=== PATIENT | male | born 1975 | race Two or more races ===

== ENCOUNTER 2019-10-23 17:29 | Inpatient (IN) | payer OTHER ==
[~2019-10-23] VITALS: Ht 160 cm; Wt 64.9 kg
[~2019-10-23 17:29] MED LIST: CEFEPIME 1,000 MG in DEXTROSE 5% WATER 50 ML IV SCH
[2019-10-23] MEDS ORDERED: SODIUM CHLORIDE 0.9% 1000ML BAG (SEPSIS BOLUS) IV ONE (18:30)
[2019-10-23 18:56] LABS: MEAN CORPUSCULAR HEMOGLOBIN 28.2 pg (28.0-32.0); MEAN CORPUSCULAR VOLUME 90.1 fL (80.0-94.0); MEAN PLATELET VOLUME 10.5 fl (7.4-10.4); PLATELET 106 x1000/uL (130-400); RED BLOOD CELL COUNT 2.12 mill/uL (4.7-6.1); RED CELL DISTRIBUTION WIDTH 16.5 % (11.6-14.6)
[2019-10-23 19:02] LABS: CHLORIDE 101 mEq/L (98-107); INR 1.3; PROTHROMBIN TIME 13.5 sec (9.6-11.0)
[2019-10-23 19:08] LABS: HEMATOCRIT. 19.1 % (42.0-52.0)
[2019-10-23 19:13] LABS: CLARITY URINE CLEAR (CLEAR); COLOR URINE YELLOW (YELLOW); KETONES URINE NEGATIVE (NEGATIVE); LEUKOCYTE ESTERASE URINE NEGATIVE (NEGATIVE); NITRITE URINE NEGATIVE (NEGATIVE); OCCULT BLOOD URINE NEGATIVE (NEGATIVE); PROTEIN URINE 3+ (NEGATIVE); SPECIFIC GRAVITY URINE 1.012 (1.005-1.030); UROBILINOGEN URINE 0.2 E.U./dL (0.2-1.0)
[2019-10-23] MEDS ORDERED: INSULIN REGULAR (DRIP) 100 UNITS in SODIUM CHLORIDE 0.9% 100 ML IV NR (19:22)
[2019-10-23] MEDS ORDERED: SODIUM CHLORIDE 0.9% 1,000 ML IV ONE (19:30)
[2019-10-23] MEDS ORDERED: CALCIUM CHLORIDE 1GM/10ML SYR IV ONE (19:30)
[2019-10-23] MEDS ORDERED: INSULIN REGULAR (HUMULIN R) 300UNITS/3ML IV ONE (19:30)
[2019-10-23] MEDS ORDERED: SODIUM BICARBONATE 8.4% 1 MEQ/ML 50ML SYR IV ONE (19:30)
[2019-10-23] MEDS ORDERED: ONDANSETRON HCL 4MG/2ML INJ IV ONE (20:45)
[2019-10-23 20:56] LABS: PLATELET ESTIMATE DECREASED
[2019-10-23 21:14] LABS: HEPATITIS B SURFACE ANTIGEN NEGATIVE
[2019-10-23 21:41] LABS: PHOSPHORUS 12.4 mg/dL (2.5-4.9)
[2019-10-23 21:44] LABS: HEPATITIS A AB IGM NEGATIVE (NEGATIVE)
[2019-10-23] MEDS ORDERED: GABAPENTIN 300MG CAPSULE PO ONE (22:45)
[2019-10-24] VITALS (29 sets, daily range): BP systolic 122–189; BP diastolic 70–135
[2019-10-24 00:25] LABS: PHOSPHORUS 12.3 mg/dL (2.5-4.9)
[2019-10-24] MEDS ORDERED: INSULIN REGULAR (DRIP) 100 UNITS in SODIUM CHLORIDE 0.9% 99 ML IV PRN ×2 (05:00→05:30)
[2019-10-24] MEDS ORDERED: SODIUM CHLORIDE 0.9% 1,000 ML IV SCH (05:15)
[2019-10-24] MEDS ORDERED: DEXT 5%/0.9% NACL 1,000 ML IV SCH (05:30)
[2019-10-24] MEDS ORDERED: DEXTROSE 50% WATER 50ML SYRINGE IV PRN ×2 (05:30)
[2019-10-24] MEDS: CEFEPIME 1,000 MG in DEXTROSE 5% WATER 50 ML IV SCH (05:53)
[2019-10-24] MEDS: BLOOD SUGAR DIAGNOSTIC STRIP TEST SCH ×18 (05:54→23:00)
[2019-10-24] MEDS: CLONIDINE 0.1MG TABLET PO PRN ×2 (05:58→14:32)
[2019-10-24] MEDS ORDERED: INSULIN REGULAR (DRIP) 100 UNITS in SODIUM CHLORIDE 0.9% 100 ML IV SCH (06:00)
[2019-10-24 06:02] LABS: BASOPHILS % 0.5 % (0.0-2.0); EOSINOPHILS % 0.6 % (0.0-5.0); LYMPHOCYTES % 24.8 % (20.0-50.0); MEAN CORPUSCULAR HEMOGLOBIN 28.8 pg (28.0-32.0); MEAN CORPUSCULAR VOLUME 88.1 fL (80.0-94.0); MEAN PLATELET VOLUME 10.2 fl (7.4-10.4); MONOCYTES % 13.8 % (2.0-8.0); NEUTROPHILS % 60.3 % (40.0-76.0); PLATELET 82 x1000/uL (130-400); RED BLOOD CELL COUNT 2.12 mill/uL (4.7-6.1); RED CELL DISTRIBUTION WIDTH 15.7 % (11.6-14.6)
[2019-10-24 06:10] LABS: HEMATOCRIT. 18.7 % (42.0-52.0); HEMOGLOBIN. 6.1 g/dL (14.0-18.0)
[2019-10-24] MEDS ORDERED: VANCOMYCIN 1 G PREMIX 200 ML IV SCH (06:30)
[2019-10-24 06:31] LABS: PHOSPHORUS 11.5 mg/dL (2.5-4.9)
[2019-10-24] MEDS ORDERED: DEXT 5%/0.45% NACL 500ML 500 ML IV SCH (08:00)
[2019-10-24] MEDS: DEXT 5%/0.45% NACL 1000ML 1,000 ML IV SCH ×2 (08:11→18:47)
[2019-10-24] MEDS: PANTOPRAZOLE SODIUM 40 MG/VIAL IV SCH ×2 (08:22→16:00)
[2019-10-24] MEDS: ONDANSETRON HCL 4MG/2ML INJ IV PRN (09:21)
[2019-10-24] MEDS ORDERED: SODIUM BICARBONATE 4% (2.4MEQ) 5ML VIAL IV ONE (10:18)
[2019-10-24] MEDS ORDERED: HEPARIN 1000 UNITS/ML 10ML ONE (10:18)
[2019-10-24] MEDS ORDERED: LIDOCAINE HCL 1% 20ML VIAL (Pyxis) INJ ONE (10:19)
[2019-10-24] MEDS ORDERED: INSULIN REGULAR (HUMULIN R) 300UNITS/3ML IV NR (10:39)
[2019-10-24] MEDS ORDERED: NIFEDIPINE XL 60MG TAB PO SCH (10:45)
[2019-10-24] MEDS ORDERED: SODIUM BICARBONATE 8.4% 1 MEQ/ML 50ML SYR IV NR ×2 (10:45→17:30)
[2019-10-24] MEDS ORDERED: DEXTROSE 50% WATER 50ML SYRINGE IV NR (10:45)
[2019-10-24] MEDS ORDERED: CELL2 PO (11:42)
[2019-10-24] MEDS ORDERED: PROG1 PO (11:42)
[2019-10-24] MEDS ORDERED: CALCIUM GLUCONATE 1,000 MG in DEXT 5% WATER 90 ML IV NR (12:00)
[2019-10-24] MEDS ORDERED: MYCOPHENOLATE MOFETIL 250MG CAPSULE PO SCH (13:00)
[2019-10-24] MEDS ORDERED: PRED5TAB PO (13:19)
[2019-10-24] MEDS ORDERED: FURO-152 PO (13:19)
[2019-10-24] MEDS ORDERED: CARV25TA47 PO (13:19)
[2019-10-24] MEDS ORDERED: CALCIUM ACETATE 667 MG TABLET PO SCH (13:20)
[2019-10-24] MEDS ORDERED: HYDR-4135 PO (13:21)
[2019-10-24] MEDS ORDERED: FERR325T6 PO (13:21)
[2019-10-24] MEDS ORDERED: LOSA25TA26 PO (13:21)
[2019-10-24] MEDS ORDERED: FUROSEMIDE 40MG/4ML VIAL IVP SCH (14:45)
[2019-10-24] MEDS: HYDRALAZINE HCL 50MG TABLET PO SCH ×2 (15:54→21:41)
[2019-10-24 16:14] LABS: BG BASE EXCESS -6.6 mmol/L (-2.0-2.0); BG CARBOXYHEMOGLOBIN 0.3 % (0.5-1.5); BG DEOXYHEMOGLOBIN 2.1 % (0.0-5.0); BG FRACTION INSPIRED OXYGEN 28; BG HCO3 ACT 15.5 mmol/L (22.0-26.0); BG METHEMOGLOBIN 0.2 % (0.0-1.5); BG OXYGEN SATURATION 97.9 % (92.0-98.5); BG OXYHEMOGLOBIN 97.4 % (94.0-97.0); BG PH 7.485 (7.350-7.450); BG PO2 125.4 mmHg (75.0-100.0); BG SAMPLE SITE RIGHT RADIAL; BG VENT MODE NASAL CANNULA
[2019-10-24] MEDS ORDERED: CALCIUM GLUCONATE 100MG/ML 10ML VIAL IV NR (16:30)
[2019-10-24] MEDS: METRONIDAZOLE 500 MG PREMIX 100 ML IV SCH (16:49)
[2019-10-24] MEDS ORDERED: TACROLIMUS 1MG CAPSULE PO SCH (17:00)
[2019-10-24] MEDS: MYCOPHENOLATE MOFETIL 250MG CAPSULE PO SCH (17:54)
[2019-10-24] MEDS: TACROLIMUS 1MG CAPSULE PO SCH (17:54)
[2019-10-24] MEDS ORDERED: VANCOMYCIN 750 MG PREMIX 150 ML IV SCH (18:00)
[2019-10-24] MEDS ORDERED: POTASSIUM CHLORIDE 20MEQ TABLET SR PO NR (19:12)
[2019-10-24 20:28] LABS: HEMATOCRIT 25.1 % (42.0-52.0); HEMOGLOBIN 8.6 g/dL (14.0-18.0); MEAN CORPUSCULAR HEMOGLOBIN 28.8 pg (28.0-32.0); MEAN CORPUSCULAR VOLUME 83.7 fL (80.0-94.0); PLATELET 79 x1000/uL (130-400); RED BLOOD CELL COUNT 2.99 mill/uL (4.7-6.1); RED CELL DISTRIBUTION WIDTH 15.7 % (11.6-14.6)
[2019-10-24] MEDS ORDERED: EPOETIN ALFA 4000UNITS/ML VIAL SUBCUT NR (21:00)
[2019-10-24] MEDS ORDERED: GABAPENTIN 100MG CAPSULE PO PRN (22:45)
[2019-10-25] VITALS (51 sets, daily range): BP systolic 106–197; BP diastolic 63–124
[2019-10-25] MEDS: METRONIDAZOLE 500 MG PREMIX 100 ML IV SCH ×3 (01:53→21:07)
[2019-10-25] MEDS: BLOOD SUGAR DIAGNOSTIC STRIP TEST SCH ×12 (01:54→20:28)
[2019-10-25] MEDS: DEXT 5%/0.45% NACL 1000ML 1,000 ML IV SCH ×3 (05:10→23:47)
[2019-10-25] MEDS: CEFEPIME 1,000 MG in DEXTROSE 5% WATER 50 ML IV SCH (05:16)
[2019-10-25 06:49] LABS: HEMOGLOBIN. 8.5 g/dL (14.0-18.0); MEAN CORPUSCULAR HEMOGLOBIN 28.6 pg (28.0-32.0); MEAN CORPUSCULAR VOLUME 83.9 fL (80.0-94.0); MEAN PLATELET VOLUME 9.5 fl (7.4-10.4); PLATELET 75 x1000/uL (130-400); RED BLOOD CELL COUNT 2.97 mill/uL (4.7-6.1); RED CELL DISTRIBUTION WIDTH 15.7 % (11.6-14.6)
[2019-10-25 07:57] LABS: BG BASE EXCESS -8.9 mmol/L (-2.0-2.0); BG CARBOXYHEMOGLOBIN 0.3 % (0.5-1.5); BG DEOXYHEMOGLOBIN 4.9 % (0.0-5.0); BG FRACTION INSPIRED OXYGEN 21; BG METHEMOGLOBIN 0.3 % (0.0-1.5); BG OXYGEN SATURATION 95.1 % (92.0-98.5); BG OXYHEMOGLOBIN 94.5 % (94.0-97.0); BG PCO2 25.8 mmHg (35.0-45.0); BG PH 7.382 (7.350-7.450); BG PO2 81.5 mmHg (75.0-100.0); BG SAMPLE SITE RIGHT RADIAL; BG TOTAL HEMOGLOBIN 9.4 g/dL (12.0-18.0); BG VENT MODE ROOM AIR
[2019-10-25] MEDS ORDERED: LOSARTAN POTASSIUM 25 MG TABLET PO SCH (09:00)
[2019-10-25] MEDS ORDERED: PREDNISONE 5MG TABLET PO SCH (09:00)
[2019-10-25] MEDS ORDERED: DEXTROSE 50% WATER 50ML SYRINGE IV PRN (09:00)
[2019-10-25] MEDS: METHYLPREDNISOLONE SOD SUCC 40 MG/ML VIAL IV SCH (10:01)
[2019-10-25] MEDS: FUROSEMIDE 40MG/4ML VIAL IVP SCH (10:01)
[2019-10-25] MEDS: PANTOPRAZOLE SODIUM 40 MG/VIAL IV SCH ×2 (10:01→17:19)
[2019-10-25] MEDS: TACROLIMUS 1MG CAPSULE PO SCH ×2 (10:02→17:19)
[2019-10-25] MEDS: MYCOPHENOLATE MOFETIL 250MG CAPSULE PO SCH ×3 (10:02→17:19)
[2019-10-25] MEDS: HYDRALAZINE HCL 50MG TABLET PO SCH ×3 (10:02→17:19)
[2019-10-25 12:44] LABS: TOTAL IRON BINDING CAPACITY 159 ug/dL (250-450)
[2019-10-25] MEDS: INSULIN LISPRO 100 UNITS/ML SUBCUT SCH ×3 (13:31→20:55)
[2019-10-25] MEDS: ONDANSETRON HCL 4MG/2ML INJ IV PRN (15:06)
[2019-10-25 16:45] LABS: PLATELET ESTIMATE DECREASED
[2019-10-25] MEDS: HYDRALAZINE HCL 100MG TABLET PO SCH ×3 (19:45→21:04)
[2019-10-25] MEDS: EPOETIN ALFA 4000UNITS/ML VIAL SUBCUT SCH (21:09)
[2019-10-25] MEDS: IRON SUCROSE COMPLEX 100 MG/5 ML ML IV SCH (21:59)
[2019-10-25] MEDS: METOPROLOL TARTRATE 25MG TABLET PO SCH (23:47)
[2019-10-25] MEDS: LOSARTAN POTASSIUM 50 MG TABLET PO SCH (23:47)
[2019-10-26] VITALS (23 sets, daily range): BP systolic 101–205; BP diastolic 58–128
[2019-10-26] MEDS: CLONIDINE 0.1MG TABLET PO PRN (00:37)
[2019-10-26] MEDS ORDERED: CLONIDINE 0.2MG TABLET PO PRN (01:45)
[2019-10-26] MEDS ORDERED: NIFEDIPINE XL 60MG TAB PO SCH (02:30)
[2019-10-26] MEDS ORDERED: HYDRALAZINE 20MG/ML VIAL IV PRN (02:30)
[2019-10-26] MEDS ORDERED: NICARDIPINE 50 MG in SODIUM CHLORIDE 0.9% 230 ML IV PRN (04:45)
[2019-10-26] MEDS: CEFEPIME 1,000 MG in DEXTROSE 5% WATER 50 ML IV SCH (05:31)
[2019-10-26] MEDS: HYDRALAZINE HCL 100MG TABLET PO SCH ×3 (05:32→22:06)
[2019-10-26 06:21] LABS: MEAN CORPUSCULAR HEMOGLOBIN 28.7 pg (28.0-32.0); MEAN PLATELET VOLUME 9.3 fl (7.4-10.4); PLATELET 58 x1000/uL (130-400); RED BLOOD CELL COUNT 2.39 mill/uL (4.7-6.1)
[2019-10-26 06:42] LABS: HEMOGLOBIN. 6.8 g/dL (14.0-18.0)
[2019-10-26] MEDS ORDERED: HEPATITIS B VIRUS VACCINE-PF 10 MCG/0.5 VIAL IM ONE (07:30)
[2019-10-26 07:38] LABS: PHOSPHORUS 6.8 mg/dL (2.5-4.9)
[2019-10-26] MEDS ORDERED: TUBERCULIN,PURIF.PROT.DERIV. 5 TU/0.1 ML SYR ID ONE (08:00)
[2019-10-26] MEDS: BLOOD SUGAR DIAGNOSTIC STRIP TEST SCH ×4 (08:27→21:00)
[2019-10-26] MEDS: PANTOPRAZOLE SODIUM 40 MG/VIAL IV SCH ×2 (08:37→19:12)
[2019-10-26] MEDS: METHYLPREDNISOLONE SOD SUCC 40 MG/ML VIAL IV SCH (08:38)
[2019-10-26] MEDS: TACROLIMUS 1MG CAPSULE PO SCH ×2 (08:38→19:13)
[2019-10-26] MEDS: FUROSEMIDE 40MG/4ML VIAL IVP SCH (08:38)
[2019-10-26] MEDS: NIFEDIPINE XL 60MG TAB PO SCH (08:39)
[2019-10-26] MEDS: METOPROLOL TARTRATE 25MG TABLET PO SCH ×2 (08:39→22:07)
[2019-10-26] MEDS: MYCOPHENOLATE MOFETIL 250MG CAPSULE PO SCH ×2 (08:40→19:14)
[2019-10-26] MEDS: LOSARTAN POTASSIUM 50 MG TABLET PO SCH (08:40)
[2019-10-26] MEDS: METRONIDAZOLE 500 MG PREMIX 100 ML IV SCH ×2 (08:41→22:06)
[2019-10-26] MEDS: INSULIN LISPRO 100 UNITS/ML SUBCUT SCH ×4 (08:43→21:00)
[2019-10-26] MEDS ORDERED: LOSARTAN POTASSIUM 50 MG TABLET PO SCH (09:00)
[2019-10-26] MEDS ORDERED: METOPROLOL TARTRATE 25MG TABLET PO SCH (09:00)
[2019-10-26 09:09] LABS: ERYTHROPOIETIN SERUM 66.3 mIU/mL (2.6-18.5)
[2019-10-26 09:13] LABS: PLATELET ESTIMATE MARKEDLY DECREASED
[2019-10-26] MEDS ORDERED: DIPHENHYDRAMINE 50MG/ML VIAL IV PRN (15:15)
[2019-10-26] MEDS ORDERED: ACETAMINOPHEN 325MG TABLET PO PRN (15:15)
[2019-10-26] MEDS: DEXT 5%/0.45% NACL 1000ML 1,000 ML IV SCH (20:15)
[2019-10-26] MEDS: IRON SUCROSE COMPLEX 100 MG/5 ML ML IV SCH (22:06)
[2019-10-26] MEDS: EPOETIN ALFA 4000UNITS/ML VIAL SUBCUT SCH (22:59)
[2019-10-27] VITALS: BP 153/70
[2019-10-27 00:03] LABS: HEMATOCRIT 24.7 % (42.0-52.0); HEMOGLOBIN 8.3 g/dL (14.0-18.0); INR 1.2; PROTHROMBIN TIME 11.9 sec (9.6-11.0)
[2019-10-27 04:00] VITALS: BP 166/95
[2019-10-27] MEDS: HYDRALAZINE HCL 100MG TABLET PO SCH ×3 (05:12→23:06)
[2019-10-27] MEDS: CEFEPIME 1,000 MG in DEXTROSE 5% WATER 50 ML IV SCH (05:12)
[2019-10-27] MEDS ORDERED: TUBERCULIN,PURIF.PROT.DERIV. 5 TU/0.1 ML SYR ID ONE (06:00)
[2019-10-27] MEDS: DEXT 5%/0.45% NACL 1000ML 1,000 ML IV SCH (06:15)
[2019-10-27 07:13] LABS: HEMATOCRIT. 25.1 % (42.0-52.0); HEMOGLOBIN. 8.5 g/dL (14.0-18.0); MEAN CORPUSCULAR HEMOGLOBIN 29.1 pg (28.0-32.0); MEAN CORPUSCULAR VOLUME 86.5 fL (80.0-94.0); MEAN PLATELET VOLUME 9.8 fl (7.4-10.4); PLATELET 58 x1000/uL (130-400); RED CELL DISTRIBUTION WIDTH 15.4 % (11.6-14.6)
[2019-10-27] MEDS: BLOOD SUGAR DIAGNOSTIC STRIP TEST SCH ×4 (07:55→23:08)
[2019-10-27 08:00] VITALS: BP 161/93
[2019-10-27] MEDS: INSULIN LISPRO 100 UNITS/ML SUBCUT SCH ×4 (08:10→23:12)
[2019-10-27] MEDS: METOPROLOL TARTRATE 25MG TABLET PO SCH ×2 (09:00→23:07)
[2019-10-27] MEDS: LOSARTAN POTASSIUM 50 MG TABLET PO SCH (09:00)
[2019-10-27] MEDS: FUROSEMIDE 40MG/4ML VIAL IVP SCH (09:00)
[2019-10-27] MEDS: PANTOPRAZOLE SODIUM 40 MG/VIAL IV SCH ×2 (09:21→17:17)
[2019-10-27] MEDS: NIFEDIPINE XL 60MG TAB PO SCH (09:22)
[2019-10-27] MEDS: METHYLPREDNISOLONE SOD SUCC 40 MG/ML VIAL IV SCH (09:22)
[2019-10-27] MEDS: TACROLIMUS 1MG CAPSULE PO SCH ×2 (09:23→17:18)
[2019-10-27] MEDS: METRONIDAZOLE 500 MG PREMIX 100 ML IV SCH ×2 (09:23→22:12)
[2019-10-27 10:14] LABS: PLATELET ESTIMATE DECREASED
[2019-10-27] MEDS: MYCOPHENOLATE MOFETIL 250MG CAPSULE PO SCH ×2 (10:44→17:18)
[2019-10-27 12:00] VITALS: BP 115/79
[2019-10-27] MEDS: CLONIDINE 0.1MG TABLET PO PRN (14:59)
[2019-10-27 16:00] VITALS: BP 145/75
[2019-10-27 20:00] VITALS: BP 161/94
[2019-10-27] MEDS ORDERED: VANCOMYCIN 750 MG PREMIX 150 ML IV NR (21:00)
[2019-10-27] MEDS ORDERED: EPOETIN ALFA 10000UNITS/ML VIAL SUBCUT SCH (21:00)
[2019-10-27] MEDS ORDERED: EPOETIN ALFA 10000UNITS/ML VIAL SUBCUT NR (21:00)
[2019-10-27] MEDS: IRON SUCROSE COMPLEX 100 MG/5 ML ML IV SCH (22:11)
[2019-10-27] MEDS: GUAIFENESIN 600MG ER TABLET PO SCH (23:07)
[2019-10-28] VITALS (19 sets, daily range): BP systolic 123–155; BP diastolic 65–97
[2019-10-28] MEDS: HYDRALAZINE HCL 100MG TABLET PO SCH ×3 (06:00→21:09)
[2019-10-28] MEDS: CEFEPIME 1,000 MG in DEXTROSE 5% WATER 50 ML IV SCH (06:27)
[2019-10-28] MEDS: INSULIN LISPRO 100 UNITS/ML SUBCUT SCH ×4 (06:33→21:00)
[2019-10-28] MEDS: BLOOD SUGAR DIAGNOSTIC STRIP TEST SCH ×4 (06:33→21:08)
[2019-10-28 06:55] LABS: HEMATOCRIT. 26.3 % (42.0-52.0); HEMOGLOBIN. 9.2 g/dL (14.0-18.0); MEAN CORPUSCULAR HEMOGLOBIN 29.7 pg (28.0-32.0); MEAN CORPUSCULAR VOLUME 84.8 fL (80.0-94.0); MEAN PLATELET VOLUME 9.2 fl (7.4-10.4); PLATELET 62 x1000/uL (130-400)
[2019-10-28] MEDS: GUAIFENESIN 600MG ER TABLET PO SCH ×2 (09:00→21:08)
[2019-10-28] MEDS: METOPROLOL TARTRATE 25MG TABLET PO SCH ×2 (09:00→21:08)
[2019-10-28] MEDS: LOSARTAN POTASSIUM 50 MG TABLET PO SCH (09:00)
[2019-10-28] MEDS: NIFEDIPINE XL 60MG TAB PO SCH (09:00)
[2019-10-28] MEDS ORDERED: SODIUM BICARBONATE 4% (2.4MEQ) 5ML VIAL IV ONE (09:47)
[2019-10-28] MEDS ORDERED: LIDOCAINE HCL 1% 20ML VIAL (Pyxis) INJ ONE ×2 (09:47→10:46)
[2019-10-28] MEDS ORDERED: FENTANYL CITRATE/PF 50MCG/ML 2ML VIAL ONE (10:03)
[2019-10-28] MEDS ORDERED: FENTANYL CITRATE/PF 50MCG/ML 2ML VIAL IV ONE (10:30)
[2019-10-28] MEDS ORDERED: BACITRACIN 15GM TUBE TOP ONE (10:45)
[2019-10-28] MEDS ORDERED: NORMAL SALINE 0.9% 10 ML SYR ONE (10:46)
[2019-10-28] MEDS ORDERED: THROMBIN (BOVINE) 5000 UNITS/VIAL TOP ONE (10:46)
[2019-10-28] MEDS ORDERED: BUPIVACAINE HCL/PF 0.5% (5MG/ML) 10ML ONE (10:46)
[2019-10-28] MEDS ORDERED: HEPARIN SODIUM 1,000 UNIT/1ML VIAL IV ONE (10:47)
[2019-10-28] MEDS ORDERED: BACITRACIN 50,000 UNITS/VIAL ONE (10:47)
[2019-10-28] MEDS ORDERED: SODIUM CHLORIDE 0.9% 1,000 ML ONE (10:47)
[2019-10-28] MEDS: METRONIDAZOLE 500 MG PREMIX 100 ML IV SCH ×2 (13:28→21:08)
[2019-10-28] MEDS: FUROSEMIDE 40MG/4ML VIAL IVP SCH (13:30)
[2019-10-28] MEDS: TACROLIMUS 1MG CAPSULE PO SCH ×2 (13:30→18:51)
[2019-10-28] MEDS: MYCOPHENOLATE MOFETIL 250MG CAPSULE PO SCH ×2 (13:30→18:51)
[2019-10-28] MEDS: PANTOPRAZOLE SODIUM 40 MG/VIAL IV SCH ×2 (13:30→18:51)
[2019-10-28] MEDS: METHYLPREDNISOLONE SOD SUCC 40 MG/ML VIAL IV SCH (13:31)
[2019-10-28 14:11] LABS: PLATELET ESTIMATE DECREASED
[2019-10-28 18:21] LABS: T4 FREE 0.92 ng/dL (0.76-1.46)
[2019-10-28] MEDS: IRON SUCROSE COMPLEX 100 MG/5 ML ML IV SCH (21:08)
[2019-10-29 04:00] VITALS: BP 196/78
[2019-10-29] MEDS: CEFEPIME 1,000 MG in DEXTROSE 5% WATER 50 ML IV SCH (05:24)
[2019-10-29] MEDS: HYDRALAZINE HCL 100MG TABLET PO SCH ×3 (05:27→21:15)
[2019-10-29 07:37] LABS: HEMATOCRIT. 23.4 % (42.0-52.0); HEMOGLOBIN. 7.9 g/dL (14.0-18.0); MEAN CORPUSCULAR HEMOGLOBIN 28.8 pg (28.0-32.0); MEAN CORPUSCULAR VOLUME 85.2 fL (80.0-94.0); MEAN PLATELET VOLUME 9.4 fl (7.4-10.4); PLATELET 76 x1000/uL (130-400); RED BLOOD CELL COUNT 2.75 mill/uL (4.7-6.1); RED CELL DISTRIBUTION WIDTH 15.3 % (11.6-14.6)
[2019-10-29 08:00] VITALS: BP 177/99
[2019-10-29] MEDS: BLOOD SUGAR DIAGNOSTIC STRIP TEST SCH ×4 (08:04→21:15)
[2019-10-29] MEDS: INSULIN LISPRO 100 UNITS/ML SUBCUT SCH ×4 (08:04→21:00)
[2019-10-29] MEDS: LOSARTAN POTASSIUM 50 MG TABLET PO SCH (08:05)
[2019-10-29] MEDS: NIFEDIPINE XL 60MG TAB PO SCH (08:05)
[2019-10-29] MEDS: METOPROLOL TARTRATE 25MG TABLET PO SCH ×2 (08:05→21:15)
[2019-10-29] MEDS: FUROSEMIDE 40MG TABLET PO SCH (09:28)
[2019-10-29] MEDS: MYCOPHENOLATE MOFETIL 250MG CAPSULE PO SCH ×2 (09:28→17:55)
[2019-10-29] MEDS: GUAIFENESIN 600MG ER TABLET PO SCH ×2 (09:29→21:15)
[2019-10-29] MEDS: CLONIDINE 0.2MG TABLET PO PRN ×2 (09:29→18:20)
[2019-10-29] MEDS: TACROLIMUS 1MG CAPSULE PO SCH ×2 (09:29→17:55)
[2019-10-29] MEDS: PANTOPRAZOLE SODIUM 40 MG/VIAL IV SCH ×2 (10:59→17:54)
[2019-10-29] MEDS: METHYLPREDNISOLONE SOD SUCC 40 MG/ML VIAL IV SCH (10:59)
[2019-10-29] MEDS: METRONIDAZOLE 500 MG PREMIX 100 ML IV SCH ×2 (11:00→21:15)
[2019-10-29 12:00] VITALS: BP 209/105
[2019-10-29] MEDS: HYDRALAZINE 20MG/ML VIAL IV PRN (12:54)
[2019-10-29 16:00] VITALS: BP 162/95
[2019-10-29] MEDS: CLONIDINE 0.1MG TABLET PO PRN (16:33)
[2019-10-29 17:57] LABS: PLATELET ESTIMATE DECREASED
[2019-10-29 20:00] VITALS: BP 156/82
[2019-10-29] MEDS ORDERED: EPOETIN ALFA 4000UNITS/ML VIAL SUBCUT NR (21:00)
[2019-10-29] MEDS: IRON SUCROSE COMPLEX 100 MG/5 ML ML IV SCH (21:15)
[2019-10-30] VITALS: BP 136/81
[2019-10-30 04:00] VITALS: BP 141/87
[2019-10-30] MEDS: HYDRALAZINE HCL 100MG TABLET PO SCH ×3 (05:49→21:05)
[2019-10-30] MEDS: CEFEPIME 1,000 MG in DEXTROSE 5% WATER 50 ML IV SCH (05:49)
[2019-10-30 06:47] LABS: HEMATOCRIT. 22.1 % (42.0-52.0); HEMOGLOBIN. 7.5 g/dL (14.0-18.0); MEAN CORPUSCULAR HEMOGLOBIN 29.1 pg (28.0-32.0); MEAN CORPUSCULAR VOLUME 85.2 fL (80.0-94.0); MEAN PLATELET VOLUME 10.1 fl (7.4-10.4); PLATELET 90 x1000/uL (130-400); RED BLOOD CELL COUNT 2.59 mill/uL (4.7-6.1); RED CELL DISTRIBUTION WIDTH 14.8 % (11.6-14.6)
[2019-10-30] MEDS: BLOOD SUGAR DIAGNOSTIC STRIP TEST SCH ×4 (07:52→21:05)
[2019-10-30 08:00] VITALS: BP 174/86
[2019-10-30] MEDS: METRONIDAZOLE 500 MG PREMIX 100 ML IV SCH (08:33)
[2019-10-30] MEDS: INSULIN LISPRO 100 UNITS/ML SUBCUT SCH ×4 (08:33→21:50)
[2019-10-30] MEDS: CLONIDINE 0.1MG TABLET PO PRN (08:33)
[2019-10-30] MEDS: MYCOPHENOLATE MOFETIL 250MG CAPSULE PO SCH ×2 (08:35→17:29)
[2019-10-30] MEDS: PANTOPRAZOLE SODIUM 40 MG/VIAL IV SCH ×2 (08:35→17:27)
[2019-10-30] MEDS: LOSARTAN POTASSIUM 50 MG TABLET PO SCH (08:36)
[2019-10-30] MEDS: METOPROLOL TARTRATE 25MG TABLET PO SCH (08:36)
[2019-10-30] MEDS: TACROLIMUS 1MG CAPSULE PO SCH ×2 (08:36→17:28)
[2019-10-30] MEDS: FUROSEMIDE 40MG TABLET PO SCH (08:36)
[2019-10-30] MEDS: METHYLPREDNISOLONE SOD SUCC 40 MG/ML VIAL IV SCH (08:36)
[2019-10-30] MEDS: NIFEDIPINE XL 60MG TAB PO SCH (08:36)
[2019-10-30] MEDS: GUAIFENESIN 600MG ER TABLET PO SCH ×2 (08:38→21:04)
[2019-10-30 12:00] VITALS: BP 175/91
[2019-10-30] MEDS: HYDRALAZINE 20MG/ML VIAL IV PRN (12:17)
[2019-10-30 13:00] VITALS: BP 146/80
[2019-10-30] MEDS ORDERED: NIFEDIPINE XL 30MG TAB PO ONE (13:45)
[2019-10-30] MEDS ORDERED: VANCOMYCIN 500 MG PREMIX 100 ML IV SCH (14:00)
[2019-10-30 14:34] LABS: NUCLEATED RED BLOOD CELLS 2 /100 WBC; PLATELET ESTIMATE DECREASED
[2019-10-30] MEDS ORDERED: METOPROLOL TARTRATE 25MG TABLET PO NR (15:24)
[2019-10-30 20:00] VITALS: BP 126/75
[2019-10-30] MEDS ORDERED: METOPROLOL TARTRATE 25MG TABLET PO SCH (21:00)
[2019-10-31] VITALS: BP 121/76
[2019-10-31 04:00] VITALS: BP 144/80
[2019-10-31 05:20] LABS: HEMATOCRIT. 23.4 % (42.0-52.0); HEMOGLOBIN. 7.9 g/dL (14.0-18.0); MEAN CORPUSCULAR VOLUME 85.8 fL (80.0-94.0); MEAN PLATELET VOLUME 9.8 fl (7.4-10.4); PLATELET 132 x1000/uL (130-400); RED BLOOD CELL COUNT 2.73 mill/uL (4.7-6.1); RED CELL DISTRIBUTION WIDTH 15.2 % (11.6-14.6)
[2019-10-31] MEDS: HYDRALAZINE HCL 100MG TABLET PO SCH ×2 (05:37→14:30)
[2019-10-31] MEDS: BLOOD SUGAR DIAGNOSTIC STRIP TEST SCH ×2 (07:54→12:40)
[2019-10-31 08:00] VITALS: BP 132/82
[2019-10-31] MEDS: LOSARTAN POTASSIUM 50 MG TABLET PO SCH (09:00)
[2019-10-31] MEDS: FUROSEMIDE 40MG TABLET PO SCH (09:00)
[2019-10-31] MEDS ORDERED: NIFEDIPINE XL 90MG TAB PO SCH (09:00)
[2019-10-31] MEDS: PANTOPRAZOLE SODIUM 40 MG/VIAL IV SCH ×2 (09:15→18:30)
[2019-10-31] MEDS: TACROLIMUS 1MG CAPSULE PO SCH ×2 (09:16→18:30)
[2019-10-31] MEDS: MYCOPHENOLATE MOFETIL 250MG CAPSULE PO SCH ×2 (09:16→18:30)
[2019-10-31] MEDS: GUAIFENESIN 600MG ER TABLET PO SCH (09:16)
[2019-10-31] MEDS: METHYLPREDNISOLONE SOD SUCC 40 MG/ML VIAL IV SCH (09:16)
[2019-10-31] MEDS: INSULIN LISPRO 100 UNITS/ML SUBCUT SCH ×3 (09:19→18:40)
[2019-10-31 11:15] LABS: PLATELET ESTIMATE NORMAL
[2019-10-31 12:00] VITALS: BP 167/99
[2019-10-31] MEDS ORDERED: LOSA50TA3 PO (15:24)
[2019-10-31] MEDS ORDERED: MED4 MT (15:24)
[2019-10-31] MEDS ORDERED: PANT40TA4 MT (15:24)
[2019-10-31] MEDS ORDERED: HYDR100T26 PO (15:24)
[2019-10-31] MEDS ORDERED: PROG1 PO (15:24)
[2019-10-31] MEDS ORDERED: FURO40TA5 PO (15:24)
[2019-10-31] MEDS ORDERED: CELL2 PO (15:24)
[2019-10-31] MEDS ORDERED: NIFE90TA60 PO (15:24)
[2019-10-31 17:19] VITALS: BP 154/99
[2019-10-31] MEDS: CLONIDINE 0.1MG TABLET PO PRN (18:30)
[2019-10-31 20:00] VITALS: BP 144/86
[2019-10-31] MEDS ORDERED: EPOETIN ALFA 4000UNITS/ML VIAL SUBCUT NR (21:00)
[2019-11-01] MEDS ORDERED: EPOETIN ALFA 10000UNITS/ML VIAL SUBCUT SCH (21:00)
== END 2019-10-31 20:35 | disposition home or self-care (01) | DRG 720 ==
LOC: ER 17:39 → CVICU 19:56 → EDBEDREQ 20:02 → EDBEDREQTM 20:02 → EDBEDREQSVC 20:02 → EDBEDREQ 20:04 → ENRESERV 10-24 03:32 → 7WST 10-26 10:27
PROVIDERS: ADMIT Internal Medicine; ATTEND Internal Medicine
PROC: 30233N1 Transfusion of Nonautologous Red Blood Cells into Peripheral Vein, Percutaneous Approach (ICD-10-PCS; 2019-10-23)
PROC: B54MZZA Ultrasonography of Right Upper Extremity Veins, Guidance (ICD-10-PCS; principal; 2019-10-24)
PROC: 05HY33Z Insertion of Infusion Device into Upper Vein, Percutaneous Approach (ICD-10-PCS; 2019-10-24)
PROC: 5A1D70Z Performance of Urinary Filtration, Intermittent, Less than 6 Hours Per Day (ICD-10-PCS; 2019-10-24)
PROC: 5A1D70Z Performance of Urinary Filtration, Intermittent, Less than 6 Hours Per Day (ICD-10-PCS; 2019-10-25)
PROC: 5A1D70Z Performance of Urinary Filtration, Intermittent, Less than 6 Hours Per Day (ICD-10-PCS; 2019-10-27)
PROC: 0JH63XZ Insertion of Tunneled Vascular Access Device into Chest Subcutaneous Tissue and Fascia, Percutaneous Approach (ICD-10-PCS; 2019-10-28)
PROC: 02HV33Z Insertion of Infusion Device into Superior Vena Cava, Percutaneous Approach (ICD-10-PCS; 2019-10-28)
PROC: B548ZZA Ultrasonography of Superior Vena Cava, Guidance (ICD-10-PCS; 2019-10-28)
PROC: B5181ZA Fluoroscopy of Superior Vena Cava using Low Osmolar Contrast, Guidance (ICD-10-PCS; 2019-10-28)
PROC: 5A1D70Z Performance of Urinary Filtration, Intermittent, Less than 6 Hours Per Day (ICD-10-PCS; 2019-10-29)
PROC: 5A1D70Z Performance of Urinary Filtration, Intermittent, Less than 6 Hours Per Day (ICD-10-PCS; 2019-10-31)
DX: A41.9 Sepsis, unspecified organism (principal); J96.00 Acute respiratory failure, unspecified whether with hypoxia or hypercapnia; J69.0 Pneumonitis due to inhalation of food and vomit; E11.10 Type 2 diabetes mellitus with ketoacidosis without coma; D61.818 Other pancytopenia; T86.19 Other complication of kidney transplant; E46 Unspecified protein-calorie malnutrition; N17.9 Acute kidney failure, unspecified; I12.0 Hypertensive chronic kidney disease with stage 5 chronic kidney disease or end stage renal disease; N18.6 End stage renal disease; E11.22 Type 2 diabetes mellitus with diabetic chronic kidney disease; R65.20 Severe sepsis without septic shock; E87.5 Hyperkalemia; E87.1 Hypo-osmolality and hyponatremia; K92.2 Gastrointestinal hemorrhage, unspecified; E83.51 Hypocalcemia; D50.0 Iron deficiency anemia secondary to blood loss (chronic); E83.42 Hypomagnesemia; E83.39 Other disorders of phosphorus metabolism; I51.7 Cardiomegaly; Y83.0 Surgical operation with transplant of whole organ as the cause of abnormal reaction of the patient, or of later complication, without mention of misadventure at the time of the procedure; Z79.84 Long term (current) use of oral hypoglycemic drugs; Z88.0 Allergy status to penicillin; Z68.25 Body mass index [BMI] 25.0-25.9, adult
CPT/HCPCS: 36415; 36558; 36589; 36600; 71045; 74176; 76937; 77001; 80048; 80053; 80197; 80202; 81003; 82270; 82375; 82668; 82728; 82805; 82962; 83036; 83540; 83550; 83605; 83735; 84100; 84145; 84439; 84443; 84484; 85014; 85018; 85025; 85027; 85049; 85384; 86705; 86706; 86709; 86803; 86850; 86900; 86920; 87340; 90585; 93005; 93306; 93970; 99152; 99153; 99291; C1750; C1752; C1769; C9113; J0360; J0610; J0692; J0885; J1200; J1642; J1644; J1815; J1940; J2405; J2920; J3010; J3370; J3490; J7030; J7040; J7042; J7050; J7060; J7507; J7517; P9016; G0500